=== PATIENT | male | born 1965 | race Caucasian/White ===

== ENCOUNTER → 2019-01-11 08:07 | Outpatient (CLI) | payer BC, SELFPAY ==
--- NOTE | 2019-01-11 08:13 | CA_ITS ---
PROCEDURE: 2-D M-mode and color Doppler study INDICATIONS FOR THE TEST: Chest pain COPD Heart Murmur Tobacco Smoking Palpitations Fatigue Syncope Edema Hypertension+Diabetes Mellitus Rheumatic Fever SOB+EMERY Obesity Hyperlipidemia+ Family History HD+ Additional History TACHYCARDIA, ABN EKG, SUDEEP, DIZZINESS PATIENT INFORMATION HEIGHT: 72 WEIGHT:192 GENDER: Male B/P:126/96 2-D/M-MODE INTERPRETATION: 2-D MEASUREMENTS OBSERVED VALUES IN CMS Right Ventricular Dimension (RVDd) 2.3 Interventricular Septum (Thickness)(IVsd) 1.4 Left Ventricular Internal Dimensions(LVIDd) 4.6 Left Ventricular Posterior Wall (Thickness)(LVPWd) 0.9 Aortic Root 3.5 Aortic Cusp Separation 1.5 Left Atrial Dimensions (LAD) 3.4 2D 1. Left atrium is mildly enlarged, left ventricle is normal size, mild concentric left ventricular hypertrophy, visually estimated ejection fraction 55% with no regional wall motion abnormality. 2. The right atrium and right ventricle are normal size and contractility. 3. The aortic valve is thickened and is difficult to display mobility. 4. The mitral and tricuspid valvular grossly normal. 5. No significant pericardial effusion noted. 6. The pulmonic valve is poorly visualized. DOPPLER INTERROGATION: Doppler interrogation of the aortic, mitral and tricuspid valvular presence of mild mitral and tricuspid regurgitation, tricuspid regurgitation jet velocity is inadequate for calculation of the right ventricular systolic pressure, grade 1 diastolic dysfunction seen with tissue Doppler evidence of raised left atrial pressure. CONCLUSION: 1. Mildly enlarged left atrium, normal left ventricular size, mild concentric left ventricular hypertrophy, visually estimated ejection fraction 55% with no regional wall motion abnormality, grade 1 diastolic dysfunction seen with tissue Doppler evidence of raised left atrial pressure. 2. Mild mitral and tricuspid regurgitation 3. No significant pericardial effusion noted.
--- NOTE | 2019-01-11 08:50 | XR_ITS ---
XR chest 2V HISTORY: Shortness of breath ITS.REASON: tachycardia, dyspnea ORDERING PHYSICIAN: Loi Yuan MD PATIENT AGE: 53 years COMPARISON: None FINDINGS: The cardiomediastinal silhouette and pulmonary vascularity are within normal limits. The lungs are clear without infiltrates, suspicious nodules, or pleural effusions. No acute bony abnormalities. IMPRESSION: Negative chest, no acute finding
[2019-01-11 09:08] LABS: Basophils # 0.1 K/mm3 (0-0.2); Basophils % 1.1 % (0.1-2.0); Eosinophils # 0.2 K/mm3 (0.0-0.4); Eosinophils % 2.6 % (0.1-12.0); Hematocrit 46.3 % (42.0-52.0); Hemoglobin 15.4 g/dL (14.1-18.0); Lymphocytes # 2.4 K/mm3 (0.7-4.5); Lymphocytes % 38.2 % (10-50); Mean Corpuscular HGB Conc 33.3 g/dL (31.8-35.4); Mean Corpuscular Hemoglobin 30.7 pg (27.0-31.2); Mean Corpuscular Volume 92.3 fl (80-94); Mean Platelet Volume 7.1 fl (7.4-10.4); Monocytes # 0.5 K/mm3 (0.1-1.0); Monocytes % 8.1 % (1.7-9.3); Neutrophils # 3.1 K/mm3 (1.8-7.8); Platelet Count 207 K/mm3 (142-424); Red Blood Count 5.02 M/mm3 (4.60-6.20); Red Cell Distribution Width 12.7 % (11.5-17.5); White Blood Count 6.2 K/mm3 (4.8-10.8)
[2019-01-11 09:36] LABS: Alanine Aminotransferase 23 U/L (12-78); Albumin Level 3.5 gm/dL (3.4-5.0); Alkaline Phosphatase 97 U/L (46-116); Anion Gap 9.2 mEq/L (5-15); Aspartate Amino Transferase 7 U/L (15-37); Bilirubin,Direct 0.1 mg/dL (0.0-0.2); Bilirubin,Indirect 0.3 mg/dL (0.0-0.9); Bilirubin,Total 0.4 mg/dL (0.2-1.0); Blood Urea Nitrogen 17 mg/dL (7-18); Calcium 9.6 mg/dL (8.5-10.1); Carbon Dioxide 32 mmol/L (21.0-32.0); Chloride 104 mmol/L (98-107); Chol/HDL Ratio 4.6 (1-3.5); Cholesterol 213 mg/dL (140-200); Creatinine,Serum 1.11 mg/dL (0.70-1.30); Estimated Glomerular Filt Rate 69 ml/min (>60); Free T4 (Free Thyroxine) 0.93 ng/dl (0.76-1.46); GFR (African American) 84 ML/MIN (>60); Glucose 104 mg/dL (74-106); HDL Cholesterol 46 mg/dL (27-67); LDL Cholesterol 152 mg/dL (0-130); Potassium 5.2 mmoL/L (3.5-5.1); Sodium 140 mmol/L (136-145); Thyroid Stimulating Hormone 1.17 uIU/ml (0.358-3.740); Total Protein,Serum 7.5 gm/dL (6.4-8.2); Triglycerides 73 mg/dL (30-200); VLDL Cholesterol 15 mg/dL (0-40)
== END ==
PROVIDERS: PCP Pediatrics; Visit Provider Internal Medicine
DX: R00.0 Tachycardia, unspecified (principal); R06.09 Other forms of dyspnea; R94.31 Abnormal electrocardiogram [ECG] [EKG]
CPT/HCPCS: 36415; 71046; 80048; 80061; 80076; 84439; 84443; 85025; 93306

== ENCOUNTER → 2019-06-07 10:18 | Outpatient (CLI) | payer BC, SELFPAY ==
--- NOTE | 2019-06-07 10:23 | AS_ITS ---
Renal Arterial Duplex Indications: 405.91 Unspecified renovascular hypertension. IMPRESSIONS 1. Greater than 50%stenosis involving the left renal artery. Consider CTA for confirmation. 2. The right renal artery appears normal. History: Risk factors: Hypertension. Dyslipidemia. Complete renal arterial duplex. Duplex scan and Doppler flow study including spectral analysis, color and mancilla scale imaging. Height: Height: 182.9cm. Height: 72in. Weight: Weight: 81.6kg. Weight: 179.6lb. Body mass index: BMI: 24.4kg/m^2. Body surface area: BSA: 2.04m^2. Location: Vascular laboratory. Patient status: Outpatient. Tables: Arterial flow: + +--------+--------+ Location V sys V ed + +--------+--------+ Right renal - proximal 189cm/s 80.2cm/s + +--------+--------+ Right renal - mid 106cm/s 45.1cm/s + +--------+--------+ Right renal - distal 93.4cm/s 35cm/s + +--------+--------+ Left renal - proximal 238cm/s 60.5cm/s + +--------+--------+ Left renal - mid 177cm/s 68.4cm/s + +--------+--------+ Left renal - distal 76.5cm/s 32.6cm/s + +--------+--------+ Right renal-origin 158cm/s 56.7cm/s + +--------+--------+ Left renal-origin 135cm/s 45.6cm/s + +--------+--------+ Aorta-prox 84.8cm/s -------- + +--------+--------+ Renal anatomy: + +-----+-----+ Left Right + +-----+-----+ Long axis 9cm 9.9cm + +-----+-----+ Short axis 7.9cm 5.7cm + +-----+-----+ Cortical thickness 1.4cm 1.6cm + +-----+-----+ Velocity ratios: + +-----+ V sys + +-----+ Right renal/aortic 2.2 + +-----+ Left renal/aortic 2.8 + +-----+ (Report amended ) Electronically signed by: Davi Mcclellan [id number]
== END ==
PROVIDERS: PCP Pediatrics; Visit Provider Internal Medicine
DX: I10 Essential (primary) hypertension (principal); R42 Dizziness and giddiness; E78.5 Hyperlipidemia, unspecified; I51.89 Other ill-defined heart diseases; R26.89 Other abnormalities of gait and mobility
CPT/HCPCS: 93976

== ENCOUNTER → 2019-06-10 09:17 | Outpatient (CLI) | payer BC, SELFPAY ==
--- NOTE | 2019-06-10 09:19 | CT_ITS ---
CT angio head INDICATION: Worsening dizziness and hypertension ITS.REASON: dizziness/htn ORDERING PHYSICIAN: Loi Yuan MD PATIENT AGE: 53 years COMPARISON: None TECHNIQUE: Contrast Used:100ml Optiray 350 Oral Contrast: Axial images were obtained. Sagittal and coronal reformatted images are reviewed as well. All CT scans at the facility use one or more dose reduction, viz: automated exposure control, ma/kV adjustment per patient size (including targeted exams where dose is matched to indication, i.e. head), or iterative reconstruction technique. FINDINGS: There are mild atheromatous changes of the intracranial portion of the internal carotid arteries at the cavernous region. No significant stenosis is evident. No aneurysm, arteriovenous malformation, or major intracranial occlusive process is demonstrated. The vertebral basilar system has an unremarkable appearance. No enhancing lesions are evident. No midline shift or mass effect. IMPRESSION: 1. Mild atheromatous changes of the cavernous portion of the internal carotid arteries without significant stenosis. 2. No aneurysm AVM or other significant anomalies.
== END ==
PROVIDERS: PCP Pediatrics; Visit Provider Internal Medicine
DX: R42 Dizziness and giddiness (principal); I10 Essential (primary) hypertension; E78.5 Hyperlipidemia, unspecified; I51.89 Other ill-defined heart diseases; R26.89 Other abnormalities of gait and mobility
CPT/HCPCS: 70496; Q9967

== ENCOUNTER → 2019-06-24 09:13 | Outpatient (CLI) | payer BC, SELFPAY ==
--- NOTE | 2019-06-24 09:17 | CT_ITS ---
PROCEDURE: CT ANGIO ABDOMEN CLINICAL HISTORY: left renal artery stenosis Renal vascular hypertension COMPARISON: No exams were available for comparison TECHNIQUE: Oral Contrast: None IV Contrast: 100 mL Optiray 350 Axial images obtained with sagittal and coronal reformats. All CT scans at the facility use one or more dose reduction, viz: automated exposure control, ma/kV adjustment per patient size (including targeted exams where dose is matched to indication, i.e. head), or iterative reconstruction technique. FINDINGS: There is mild tortuosity with mild atherosclerotic changes of the abdominal aorta. No aneurysm, dissection, or occlusion evident. 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 The superior mesenteric artery has an unremarkable appearance. The SHEMAR is patent. There is a single right renal artery which has an unremarkable appearance. Minimal atheromatous plaque is present at the ostium of the left renal artery. There is however no evidence of significant renal artery stenosis. There is a single left renal artery. He is Pertinent non angiographic findings: Chronic changes are present in the lung bases. Post cholecystectomy. IMPRESSION: 1. No evidence of renal artery stenosis 2. 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
== END ==
PROVIDERS: PCP Pediatrics; Visit Provider Internal Medicine
DX: I70.1 Atherosclerosis of renal artery (principal); I10 Essential (primary) hypertension
CPT/HCPCS: 74175; Q9967

== ENCOUNTER → 2019-09-20 09:36 | Outpatient (POV) | payer BC, SELFPAY | PROVIDERS: Visit Provider Specialist | DX: R42 Dizziness and giddiness (principal); R26.0 Ataxic gait; R29.6 Repeated falls; H55.00 Unspecified nystagmus | CPT/HCPCS: 95886; 95908 ==

== ENCOUNTER → 2019-09-20 10:59 | Outpatient (CLI) | payer BC, SELFPAY ==
--- NOTE | 2019-09-20 11:01 | MR_ITS ---
PROCEDURE: MR CERVICAL SPINE WO CON CLINICAL INDICATION: dizziness Dizziness and headache, imbalance COMPARISON: No exams were available for comparison TECHNIQUE: Standard multiplanar multiecho sequences are performed without contrast. 3-D MIP and myelographic images are also rendered and reviewed FINDINGS: There is normal alignment. The cranial cervical junction has an unremarkable appearance. C2-C3: Unremarkable. C3-C4: Small central disc protrusion slightly eccentric toward the left without impingement. C4-C5 unremarkable. C5-C6: Minimal bulging disc slightly eccentric toward the left. C6-C7 and C7-T1 have an unremarkable appearance. IMPRESSION: 1. A small central disc protrusion slightly eccentric toward the left at C3-C4. 2. Minimal bulging disc C5-C6. 3. Somewhat limited exam secondary to motion artifact. No extruded herniated disc or canal stenosis apparent. Dictated by: Davi Mcclellan MD 09/21/2019 18:00 Electronically signed by Davi Mcclellan MD in [facility] 09/22/2019 05:35
[2019-09-21 13:17] LABS: Rapid Plasma Reagin Ab Titer Non Reactive (NonRea<1:1)
[2019-09-22 10:10] LABS: Methylmalonic Acid 171 nmol/L (0-378)
== END ==
PROVIDERS: PCP Pediatrics; Visit Provider Specialist
DX: H55.00 Unspecified nystagmus (principal); R26.0 Ataxic gait; R29.6 Repeated falls; R42 Dizziness and giddiness
CPT/HCPCS: 36415; 72141; 76376; 82131; 86592

== ENCOUNTER → 2019-09-27 08:07 | Outpatient (POV) | payer BC, SELFPAY | PROVIDERS: Visit Provider Specialist | DX: R42 Dizziness and giddiness (principal); R26.0 Ataxic gait; R29.6 Repeated falls; H55.00 Unspecified nystagmus | CPT/HCPCS: 95819 ==

== ENCOUNTER → 2019-10-06 10:29 | Outpatient (CLI) | payer BC, SELFPAY | PROVIDERS: Visit Provider Specialist | DX: R42 Dizziness and giddiness (principal) | CPT/HCPCS: 36415 ==

== ENCOUNTER → 2019-10-26 14:31 | Outpatient (CLI) | payer BC, SELFPAY ==
[2019-12-01 17:21] LABS: Miscellaneous Test NEGATIVE
== END ==
PROVIDERS: Visit Provider Specialist
DX: M54.2 Cervicalgia (principal)

== ENCOUNTER → 2019-11-16 20:00 | Outpatient (CLI) | payer BC, SELFPAY | PROVIDERS: PCP Pediatrics; Visit Provider Specialist | DX: G47.33 Obstructive sleep apnea (adult) (pediatric) (principal); R42 Dizziness and giddiness; R53.83 Other fatigue | CPT/HCPCS: 95810 ==

== ENCOUNTER → 2020-03-13 14:36 | Outpatient (CLI) | payer BC, SELFPAY ==
[2020-03-15 08:41] LABS: Ceruloplasmin 25.7 mg/dL (16.0-31.0)
== END ==
PROVIDERS: Visit Provider Specialist
DX: R27.0 Ataxia, unspecified (principal); G47.33 Obstructive sleep apnea (adult) (pediatric)
CPT/HCPCS: 36415; 82390

== ENCOUNTER → 2020-05-29 12:14 | Outpatient (CLI) | payer BC, SELFPAY ==
[2020-05-29 13:33] LABS: Chloride 103 mmol/L (98-107); Potassium 4.2 mmoL/L (3.5-5.1); Sodium 140 mmol/L (136-145)
[2020-05-29 13:35] LABS: Bilirubin,Unconjugated 0.4 mg/dL (0.0-1.1); Blood Urea Nitrogen 14 mg/dl (9-20); Estimated Glomerular Filt Rate 100 ml/min (>60); GFR (African American) 121 ML/MIN (>60)
[2020-05-29 13:36] LABS: Alanine Aminotransferase 20 U/L (12-78); Albumin Level 4.1 g/dl (3.5-5.0); Alkaline Phosphatase 67 U/L (38-126); Anion Gap 12.2 mEq/L (5-15); Aspartate Amino Transferase 20 U/L (17-59); Bilirubin,Indirect 0.4 mg/dL (0.0-0.9); Bilirubin,Total 0.4 mg/dl (0.2-1.3); Calcium 9.5 mg/dl (8.4-10.2); Carbon Dioxide 29 mmol/L (22.0-30.0); Cholesterol 201 mg/dl (140-200); Glucose 95 mg/dl (74-100); Total Protein,Serum 6.9 g/dl (6.3-8.2); Triglycerides 102 mg/dl (30-150)
[2020-05-29 15:06] LABS: Chol/HDL Ratio 3.9 (1-3.5); Direct LDL Cholesterol 124.49 mg/dL (100-129); HDL Cholesterol 52 mg/dl (40-60); VLDL Cholesterol 20 mg/dL (0-40)
== END ==
PROVIDERS: Urology; Visit Provider Internal Medicine
DX: R06.00 Dyspnea, unspecified (principal); R42 Dizziness and giddiness; R00.0 Tachycardia, unspecified; R94.31 Abnormal electrocardiogram [ECG] [EKG]; E78.5 Hyperlipidemia, unspecified; I10 Essential (primary) hypertension; R26.89 Other abnormalities of gait and mobility; G47.33 Obstructive sleep apnea (adult) (pediatric); R27.0 Ataxia, unspecified; Z82.49 Family history of ischemic heart disease and other diseases of the circulatory system; I70.1 Atherosclerosis of renal artery; I77.4 Celiac artery compression syndrome
CPT/HCPCS: 36415; 80048; 80061; 80076; 86850

== ENCOUNTER → 2020-09-18 13:28 | Outpatient (CLI) | payer BC, SELFPAY | PROVIDERS: PCP Pediatrics; Visit Provider Specialist | DX: R00.0 Tachycardia, unspecified (principal); R94.31 Abnormal electrocardiogram [ECG] [EKG]; I63.9 Cerebral infarction, unspecified | CPT/HCPCS: 93270 ==

== ENCOUNTER → 2021-12-19 12:52 | Outpatient (CLI) | payer BC, SELFPAY ==
--- NOTE | 2021-12-19 12:52 | CA_ITS ---
APPROVED REPORT EXAM: Comprehensive 2D, Doppler, and color-flow Echocardiogram [employer] Designer: Mary Tim CRT Ht: 6 ft 0 in Wt: 182lbs BSA: 2.05 BP: 130/87 mmHg Indications: Shortness of Breath, Hyperlipidemia, Hypertension/HDD 2D Dimensions IVSd 0.82 cm LVEF (Visual) 58.00 % PWd 0.90 cm LA Volume 23.40 mL LVDd 4.01 cm LA Volume Index 11.40 mL/m2 (M/F) 16-34 LVDs 2.80 cm LVOT 2.07 cm (M/F) 1.5-2.5 M-Mode Dimensions LA Diam 3.37 cm (1.9-4.0) Ao Diam 3.54 cm (2.0-3.7) TAPSE 1.86 (<1.7) LV Diastology E Decel Time 183.00 (160-240 msec) E/A Ratio 0.63 MED E' 8.60 (< 7 cm/sec) MED A' 13.90 cm/s E'/MED E' Ratio 7.12 (>14) LAT E' 9.20 (<10 cm/sec) LAT A' 16.30 cm/s E/LAT E' Ratio 6.65 (>14) Aortic Valve LVOT Max 87.00 (70-110 cm/s) LVOT VTI 16.80 cm AoV Peak Esa. 105.00 (50-130 cm/s) AO Peak GR. 4.40 mmHg AO Mean GR. 2.20 (<5 mmHg) AO VTI 17.60 (18-25 cm) GERALD (VTI) 3.21 (2.5-4.5 cm2) Mitral Valve MV A Velocity 97.00 (40-130 cm/s) E/A Ratio 0.63 MV Decel. Time 183.00 (160-240 ms) MV Mean Gr. 1.60 (<2mmHg) Pulmonary Valve PV Peak Velocity 73.00 (50-150 cm/s) Tricuspid Valve TR P. Velocity 141.00 cm/s RAP Estimate 10.00 mmHg RVSP 18.00 mmHg Left Ventricle Left atrium is mildly enlarged, left ventricle is normal size, mild concentric left ventricular hypertrophy, visually estimated ejection fraction 55% with no regional wall motion abnormality, grade 1 diastolic dysfunction seen without tissue Doppler evidence of raise left atrial pressure. Right Ventricle Right atrium and right ventricle are normal size and contractility. Aortic Valve Aortic valve is thickened and calcified without Doppler evidence of aortic stenosis or aortic insufficiency. Mitral Valve Mitral valve grossly normal, there is trace mitral regurgitation. Tricuspid Valve Tricuspid valve grossly normal, there is trace tricuspid regurgitation, tricuspid regurgitation jet velocity is inadequate for calculation of the right ventricular systolic pressure. Pulmonic Valve Pulmonic valve is poorly visualized. Great Vessels Aortic root is normal size. Inferior vena cava is poorly visualized. Pericardium No significant pericardial effusion. Conclusion 1. Mildly enlarged left atrium, normal left ventricular size, mild concentric left ventricular hypertrophy, visually estimated ejection fraction 55% with no regional wall motion abnormality, grade 1 diastolic dysfunction seen without tissue Doppler evidence of raise left atrial pressure. 2. Thickened and calcified aortic valve without Doppler evidence of aortic stenosis or aortic insufficiency. 3. Trace mitral and tricuspid regurgitation. 4. No significant pericardial effusion. 5. Inferior vena cava is poorly visualized. Electronically signed by : Jcarlos Borges MD 12/19/2021 21:29:22
[2021-12-19 15:02] LABS: Alanine Aminotransferase 34 U/L (12-78); Albumin Level 4.4 g/dl (3.5-5.0); Alkaline Phosphatase 83 U/L (38-126); Aspartate Amino Transferase 30 U/L (17-59); Bilirubin,Direct 0.1 mg/dl (0.0-0.4); Bilirubin,Indirect 0.2 mg/dL (0.0-0.9); Bilirubin,Total 0.3 mg/dl (0.2-1.3); Bilirubin,Unconjugated 0.3 mg/dL (0.0-1.1); Chol/HDL Ratio 4.5 (1-3.5); Cholesterol 230 mg/dl (140-200); HDL Cholesterol 51 mg/dl (40-60); Total Protein,Serum 7.1 g/dl (6.3-8.2); Triglycerides 127 mg/dl (30-150); VLDL Cholesterol 25 mg/dL (0-40)
[2021-12-19 15:14] LABS: Direct LDL Cholesterol 154.84 mg/dL (100-129)
== END ==
PROVIDERS: PCP Pediatrics; Visit Provider Urology
DX: R06.09 Other forms of dyspnea (principal); R42 Dizziness and giddiness; I10 Essential (primary) hypertension; E78.2 Mixed hyperlipidemia; I51.89 Other ill-defined heart diseases; I73.9 Peripheral vascular disease, unspecified; R26.89 Other abnormalities of gait and mobility
CPT/HCPCS: 36415; 80061; 80076; 93306